=== PATIENT | male | born 1945 | race Caucasian/White ===

== ENCOUNTER 2018-10-24 05:12 | Day surgery (SDC) | payer MEDICARE, OTHER ==
[2018-10-24] MEDS ORDERED: fentaNYL 100 MCG/2 ML SDV IV ONE ×3 (05:13→06:33)
[2018-10-24] MEDS ORDERED: Midazolam 1 MG/ML 2 ML SDV IV ONE ×4 (05:13→06:46)
[2018-10-24] MEDS ORDERED: Dextrose 5%-0.45% NaCl 1,000 ML IV SCH ×2 (05:50→07:15)
[2018-10-24] MEDS ORDERED: fentaNYL 100 MCG/2 ML SDV ONE (06:11)
[2018-10-24] MEDS ORDERED: Midazolam 1 MG/ML 2 ML SDV ONE (06:11)
[2018-10-24] MEDS ORDERED: Sodium Chloride 0.9% 10 ML Syringe FLUSH PRN (07:09)
[2018-10-24 12:28] VITALS: BP 138/71; PULSE 58
--- NOTE | 2018-10-24 13:15 | OR ---
DATE: 10/24/2018 PROCEDURE PERFORMED: Total colonoscopy and multiple cold snare polypectomies. INSTRUMENT USED: PCF-H190DL Olympus video colonoscope. PREMEDICATIONS: Fentanyl 100 mcg intravenous, Versed 2.5 mg intravenous. Nasal O2 cannula. The procedure was done under pulse oximetry, BP recording, and threat monitoring analyst. INDICATION: The patient with high-risk family history for colon cancer and previous colonic tubular adenoma. Surveillance colonoscopic examination is done for detection of any polypoid lesions and removal, endoscopic hemostasis therapy if needed. DESCRIPTION OF PROCEDURE: Initial rectal exam showed BPH. Rigid anoscopy was normal. The colonoscope was passed with ease up to the ileocecal area. Photographs were taken of the normal-appearing cecum, identified by landmarks of appendiceal orifice and double-bulged ileocecal folds. No bleeding was noted from any of the visualized areas at the commencement of the examination. There was quite a bit of liquid fecal material that had to be aspirated. Bowel preparation in all the regions [place] scale 2. No stricture. No vascular ectasia. No large isolated ulcerations seen. No evidence of diffuse inflammatory bowel disease in the form of friability, contact bleeding, or ulcerations. Probing the proximal sides of folds and flexures using adequate distention and clearing of the stool material, withdrawal of the scope was made. A 5 mm sized benign-appearing polyp was noted at the proximal transverse colon, photograph was taken, cold snare polypectomy was done, the tissue was retrieved and sent for histopathology. The 5 mm sized polyps were noted in the distal transverse colon and proximal descending colon, cold snare polypectomies were done, the tissues were retrieved and sent for histopathology. No bleeding was noted from any of the visualized areas at the completion of examination. IMPRESSION: Multiple colonic polyps. The patient tolerated the procedure well. [facility] /[id number]
--- NOTE | 2018-10-24 14:28 | LETTER ---
10/24/2018 Trae Eugene MD [address] [place] [address] RE: SAKINA WOLF HJELMER : [address] Eugene: Mr. Sakina Wolf had colonoscopic examination done this morning and he tolerated the procedure well. I herewith send a copy of the endoscopy note and photographs for your review. Thank you. Sincerely, [facility] /[id number]
== END 2018-10-24 09:07 | disposition home or self-care (01) ==
LOC: DL.ENDO 05:12
PROVIDERS: ATTEND Internal Medicine Gastroenterology
DX: Z12.11 Encounter for screening for malignant neoplasm of colon (principal); D12.4 Benign neoplasm of descending colon; D12.3 Benign neoplasm of transverse colon; Z80.0 Family history of malignant neoplasm of digestive organs; Z86.010 Personal history of colon polyps; I10 Essential (primary) hypertension; E78.5 Hyperlipidemia, unspecified; E79.0 Hyperuricemia without signs of inflammatory arthritis and tophaceous disease; F41.1 Generalized anxiety disorder; H91.90 Unspecified hearing loss, unspecified ear; E66.01 Morbid (severe) obesity due to excess calories; Z68.30 Body mass index [BMI] 30.0-30.9, adult; Z88.8 Allergy status to other drugs, medicaments and biological substances; Z86.19 Personal history of other infectious and parasitic diseases
CPT/HCPCS: 45385; J2250; J3010; J7042; 88305

== ENCOUNTER 2021-10-27 06:45 | Day surgery (SDC) | payer MEDICARE, OTHER ==
[~2021-10-27 06:45] MED LIST: Midazolam 1 MG/ML 2 ML SDV ONE; fentaNYL 100 MCG/2 ML SDV ONE
[2021-10-27] MEDS ORDERED: Midazolam 1 MG/ML 2 ML SDV IV ONE ×3 (06:46→08:34)
[2021-10-27] MEDS ORDERED: fentaNYL 100 MCG/2 ML SDV IV ONE ×3 (06:46→08:32)
[2021-10-27] MEDS ORDERED: Dextrose 5%-0.45% NaCl 1,000 ML IV SCH (06:50)
[2021-10-27 10:17] VITALS: BP 142/68; PULSE 48
== END 2021-10-27 10:36 | disposition home or self-care (01) ==
LOC: DL.ENDO 06:45
PROVIDERS: ATTEND Internal Medicine Gastroenterology
DX: R12 Heartburn (principal); R07.9 Chest pain, unspecified; E66.09 Other obesity due to excess calories; I10 Essential (primary) hypertension; E78.5 Hyperlipidemia, unspecified; E03.9 Hypothyroidism, unspecified; E79.0 Hyperuricemia without signs of inflammatory arthritis and tophaceous disease; R73.9 Hyperglycemia, unspecified; H91.90 Unspecified hearing loss, unspecified ear; F41.1 Generalized anxiety disorder; Z01.812 Encounter for preprocedural laboratory examination; Z20.822 Contact with and (suspected) exposure to COVID-19
CPT/HCPCS: 87077; J2250; J3010; J7042; U0002

== ENCOUNTER 2023-01-26 07:06 | Day surgery (SDC) | payer MEDICARE, OTHER ==
[2023-01-26] MEDS ORDERED: fentaNYL 100 MCG/2 ML SDV IV ONE ×3 (07:07→08:57)
[2023-01-26] MEDS ORDERED: Midazolam 1 MG/ML 2 ML SDV IV ONE ×5 (07:07→09:07)
[2023-01-26] MEDS ORDERED: Dextrose 5%-0.45% NaCl 1,000 ML IV SCH (07:30)
[2023-01-26] MEDS ORDERED: fentaNYL 100 MCG/2 ML SDV ONE (08:30)
[2023-01-26] MEDS ORDERED: Midazolam 1 MG/ML 2 ML SDV ONE (08:30)
[2023-01-26 10:45] VITALS: BP 130/71; PULSE 48
== END 2023-01-26 10:55 | disposition home or self-care (01) ==
LOC: DL.ENDO 07:06
PROVIDERS: ATTEND Internal Medicine Gastroenterology
DX: D12.3 Benign neoplasm of transverse colon (principal); K52.832 Lymphocytic colitis; N40.0 Benign prostatic hyperplasia without lower urinary tract symptoms; E11.9 Type 2 diabetes mellitus without complications; K21.9 Gastro-esophageal reflux disease without esophagitis; I10 Essential (primary) hypertension; E78.5 Hyperlipidemia, unspecified; F41.1 Generalized anxiety disorder
CPT/HCPCS: 88305; J2250; J3010; J7042